=== PATIENT | female | born 1970 | race Caucasian/White ===

== ENCOUNTER 2021-11-09 00:51 | Day surgery (SDC) | payer BC, SELFPAY ==
[2021-10-24 13:27] VITALS: BMI 32.8
--- NOTE | 2021-11-08 13:27 | SUR.PREOP ---
pt called and informed of recall on magnesium citrate. pt told not to take this before her prep. pt verbalized understanding.
[2021-11-09 06:44] VITALS: BP 128/67; PULSE 66; RESP 16; TEMP 36; O2SAT 99; BMI 32.3
[2021-11-09] MEDS: LACTATED RINGERS 1,000 ML 150 ML IV CONT (06:54)
--- NOTE | 2021-11-09 07:51 | PM.IMHP ---
H&P: HPI History of Present Illness Date/Time: 11/09/21 07:51 Chief Complaint: Neoplasia screening. Narrative: This is a 51-year-old white female patient presents for neoplasia screening. Patient's current weight appetite and bowel movements are normal. She denies abdominal pain. Patient has had no bleeding. Family history is noncontributory. Patient presents today for neoplasia screening. Review of Systems Review of Systems: Review of systems noncontributory. [facility] Past Medical History Medical History (Updated 11/01/21 @ 15:19 by Latia Ash NP) Allergies BMI 33.0-33.9,adult Constipation Elevated BP without diagnosis of hypertension Encounter to establish care Hyperlipidemia Hypersomnia Hypertension Insomnia Screening for breast cancer Screening for colon cancer Seasonal allergies Snoring Surgical History Surgical History (Updated 09/14/21 @ 11:03 by Luc Johnson [facility]) H/O tubal ligation Hx of section 1991, 1993, 2001 Family History Family History (Updated 09/14/21 @ 11:02 by Luc Johnson [facility]) Sibling Hypertension Mother Cerebrovascular accident Diabetes mellitus Hypertension Heart disease Father Family history of Alzheimer's disease Malignant neoplasm of prostate Social History Social History (Updated 09/14/21 @ 11:03 by Luc Johnson [facility]) Smoking status: Never smoker Second hand tobacco smoke exposure: No Alcohol intake: never Drinks per week: 3 Substance use: never Substance use type: does not use Living arrangements: alone Spiritual care concerns: No Meds Home Medications and Allergies Home Medications Medication Instructions Recorded Confirmed Type bromelains 1 tablet PO DAILY 09/14/21 10/24/21 History cascara sagrada 2 tab-cap PO DAILY 09/14/21 10/24/21 History coenzyme Q10 75 mg capsule (Ultra 200 mg PO DAILY 09/14/21 10/24/21 History CoQ10) omega-3 fatty acids 500 mg capsule 500 mg PO DAILY 09/14/21 10/24/21 History soy isofla-blk cohosh-mag bark 1 tab-cap PO DAILY 09/14/21 10/24/21 History [Estroven] vit C-s.gthvxl-pxieuq-nubbb sd 1 cap PO DAILY 09/14/21 10/24/21 History [Tart Feldman] cyanocobalamin (vitamin B-12) 1,000 mcg PO DAILY 10/24/21 10/24/21 History 1,000 mcg tablet (Vitamin B-12) trazodone 50 mg tablet 50 mg PO QHS #30 tabs 10/24/21 10/24/21 Rx lisinopril 10 mg tablet 10 mg PO DAILY #30 tabs 11/01/21 11/09/21 Rx Allergies Allergy/AdvReac Type Severity Reaction Status Date / Time quetiapine [From Seroquel] AdvReac Severe Agitated Verified 11/09/21 06:41 Vital Signs Vital Signs - 24 hr 11/09/21 06:44 Temperature 96.8 F L Pulse Rate 66 Respiratory Rate 16 Blood Pressure 128/67 Pulse Oximetry 99 Oxygen Delivery Room Air Exam Narrative: Physical exam reveals patient to be alert. Vital signs stable. HEENT exam is unremarkable. Patient is anicteric. Lungs are clear to auscultation and percussion. Heart is without murmur or extra sounds. Abdominal exam bowel sounds are present soft nontender with no hepatosplenomegaly. Digital external rectal exam is normal. Assessment and Plan Assessment and plan (1) Screening for colon cancer: Code(s): Z12.11 - Encounter for screening for malignant neoplasm of colon Status: Acute Assessment and Plan: Patient presents today for neoplasia screening colonoscopy. Plan is for patient to have colonoscopy high-fiber diet is a advised. Further recommendations will be given.
--- NOTE | 2021-11-09 07:51 | WPDANESEPPF ---
Anes - Initial Pre Proc Eval Procedure: Operation Date: 11/09/21 08:00 Proposed Procedures p Screening Colonoscopy - Jaime Malik MD Date/Time: 11/09/21 07:51 Surgeon: Jaime Malik MD Pre Op Diagnosis: neoplasm screening Patient Data Age: 51 Gender: F Height: 1.68 m Weight: 90.9 kg Last Vital Signs Temp 96.8 F L 11/09/21 06:44 Pulse 66 11/09/21 06:44 Resp 16 11/09/21 06:44 BP 128/67 11/09/21 06:44 Pulse Ox 99 11/09/21 06:44 O2 Del Method Room Air 11/09/21 06:44 Allergies Allergy/AdvReac Type Severity Reaction Status Date / Time quetiapine [From Seroquel] AdvReac Severe Agitated Verified 11/09/21 06:41 Home Medications Medication Instructions Recorded Confirmed Type bromelains 1 tablet PO DAILY 09/14/21 10/24/21 History cascara sagrada 2 tab-cap PO DAILY 09/14/21 10/24/21 History coenzyme Q10 75 mg capsule (Ultra 200 mg PO DAILY 09/14/21 10/24/21 History CoQ10) omega-3 fatty acids 500 mg capsule 500 mg PO DAILY 09/14/21 10/24/21 History soy isofla-blk cohosh-mag bark 1 tab-cap PO DAILY 09/14/21 10/24/21 History [Estroven] vit C-s.regvtq-krqigx-mvgcu sd 1 cap PO DAILY 09/14/21 10/24/21 History [Tart Feldman] cyanocobalamin (vitamin B-12) 1,000 mcg PO DAILY 10/24/21 10/24/21 History 1,000 mcg tablet (Vitamin B-12) trazodone 50 mg tablet 50 mg PO QHS #30 tabs 10/24/21 10/24/21 Rx lisinopril 10 mg tablet 10 mg PO DAILY #30 tabs 11/01/21 11/09/21 Rx Patient hx anesthesia problems: none Family hx anesthesia problems: none Results Review: All pre-operative results and documents have been reviewed as part of the pre-operative evaluation. [facility] Past Medical History Medical History (Updated 11/01/21 @ 15:19 by Latia Ash NP) Allergies BMI 33.0-33.9,adult Constipation Elevated BP without diagnosis of hypertension Encounter to establish care Hyperlipidemia Hypersomnia Hypertension Insomnia Screening for breast cancer Screening for colon cancer Seasonal allergies Snoring Surgical History Surgical History (Updated 09/14/21 @ 11:03 by Luc Johnson [facility]) H/O tubal ligation Hx of section 1991, 1993, 2001 Family History Family History (Updated 09/14/21 @ 11:02 by uLc Johnson [facility]) Sibling Hypertension Mother Cerebrovascular accident Diabetes mellitus Hypertension Heart disease Father Family history of Alzheimer's disease Malignant neoplasm of prostate Social History Social History (Updated 09/14/21 @ 11:03 by Luc Johnson [facility]) Smoking status: Never smoker Second hand tobacco smoke exposure: No Alcohol intake: never Drinks per week: 3 Substance use: never Substance use type: does not use Living arrangements: alone Spiritual care concerns: No Anes - Eval Final PreProcedure Day of Procedure 11/09/21 07:51 Patient weight: obese Heart: regular rate and rhythm Lungs: clear to auscultation Airway: Mallampati scale class II Neurological: alert and oriented Last oral intake: >/= 8 hours ASA classification: II Emergent: no Anesthetic plan: proceed Anesthesia type and monitoring: general GIVS and standard monitoring Results Review: All pre-operative results and documents have been reviewed as part of the pre-operative evaluation. Informed Consent: The patient's anesthetic plan and its attendant risks and benefits were discussed with the patient/family/POA. Questions were solicited and answers provided to the satisfaction of the patient/family/POA.
[2021-11-09] MEDS: SIMETHICONE ORAL SUSPENSION 20 MG/0.3 ML 30 ML BOTTLE 0.6 ML IRRIGATION (08:10)
[2021-11-09 08:20] VITALS: BP 112/68; PULSE 60; RESP 17; O2SAT 100
[2021-11-09 08:30] VITALS: BP 125/79; PULSE 57; RESP 17; O2SAT 100
[2021-11-09 08:40] VITALS: BP 130/72; PULSE 61; RESP 17; O2SAT 100
== END 2021-11-09 08:50 | disposition home or self-care (01) ==
PROVIDERS: PCP Nurse Practitioner Family; Visit Provider Internal Medicine Gastroenterology
PROC: 0DJD8ZZ Inspection of Lower Intestinal Tract, Via Natural or Artificial Opening Endoscopic (ICD-10-PCS; CPT 45378; principal; 2021-11-09 08:00)
DX: Z12.11 Encounter for screening for malignant neoplasm of colon (principal); D12.3 Benign neoplasm of transverse colon; K64.8 Other hemorrhoids; K63.89 Other specified diseases of intestine; E78.5 Hyperlipidemia, unspecified; I10 Essential (primary) hypertension; G47.00 Insomnia, unspecified; E66.9 Obesity, unspecified; Z68.32 Body mass index [BMI] 32.0-32.9, adult
CPT/HCPCS: 45380; 88305; J7120

== ENCOUNTER 2021-11-14 08:58 | Outpatient (CLI) | payer BC, SELFPAY ==
--- NOTE | 2021-12-04 21:03 | WPDHOMESLEEP ---
Sleep Study - Home Unattended Date of Study: 11/14/21 Ordering Provider: Latia Ash NP Interpreting Provider: Raya Reeves, DO Home Sleep Study Type: Apnea Link Air Height: 1.65 m Weight: 90.718 kg Body Mass Index: 33.3 Neck Circumference (inches): 16 [place]: 9 Reason for Sleep Study Unrefreshing sleep, loud snoring Sleep History The patient is a 51-year-old female with hypertension, insomnia, hyperlipidemia and seasonal allergies that had a sleep study ordered by her primary care for evaluation sleep apnea. 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 She occasionally awakens from sleep short of breath. She frequently awakens at night with heartburn, belching or cough. She constantly snores loud enough that others complain. She constantly has trouble sleeping when she has a cold. She rarely wakes up gasping for air throughout the night. She rarely has breathing problems at night observed by herself or others. She constantly sweats excessively at night. She constantly has heart palpitations or irregular heartbeats during the night. She frequently falls asleep during the day but never while driving. She denies cataplexy. She occasionally has trouble at school or work due to sleepiness. She rarely feels unable to move while waking up or falling asleep. She occasionally experiences vivid dreamlike scenes upon awakening or falling asleep. She denies feeling afraid of going to sleep. She rarely has nightmares. She rarely remembers her dreams. She constantly has thoughts racing through her mind. She occasionally feels sad, depressed or anxious. She constantly has muscular tension. She occasionally notices parts of her body jerk. She occasionally kicks during the night. She constantly has crawling and aching feelings in her legs as well as leg pain during the night. She is unsure if she grinds her teeth during sleep but will occasionally awaken with morning jaw pain. She is occasionally bothered by pain during the day and occasionally awakened by pain during the night. She occasionally wakes up feeling stiff in the morning. She occasionally wakes up with sore achy muscles. She frequently wakes up with pain in the neck, spine and other joints. She goes to bed at 10:00 p.m. on both weekdays and weekends. It takes her 20-60 minutes to fall asleep. She typically wakes up 3 times throughout the night to use the restroom. She is able to fall back asleep within 5-10 minutes. She wakes up at 7:00 a.m. on both weekdays and weekends. She typically gets 5-7 hours of sleep per night. She will stay in bed for 5 minutes after waking up in the morning. She currently lives with her and adult daughter. She does not consume any caffeinated beverages within 2 hours of bedtime. She does not engage in physical exercise before bedtime. She will watch television before falling asleep. She denies taking naps in afternoon or evening. She drinks 2 cups of coffee per day. She will drink at most 1 alcoholic beverage per day. She denies tobacco and recreational drug use. [facility] Past Medical History Medical History Allergies BMI 33.0-33.9,adult Constipation Elevated BP without diagnosis of hypertension Encounter to establish care Hyperlipidemia Hypersomnia Hypertension Insomnia Screening for breast cancer Screening for colon cancer Seasonal allergies Snoring Surgical History Surgical History H/O tubal ligation Hx of section 1991, 1993, 2001 Family History Family History Sibling Hypertension Mother Cerebrovascular accident Diabetes mellitus Hypertension Heart disease Father Family history of Alzheimer's disease Malignant neoplasm of prostate Social History Social History (Reviewed 12/04/21 @ 21:11 by Raya Reeves,
[2021-12-04 21:13] VITALS: BMI 33.3
== END 2021-11-15 10:57 | disposition home or self-care (01) ==
LOC: ANHCSM 08:58
PROVIDERS: PCP Nurse Practitioner Family; Visit Provider Nurse Practitioner Family
DX: G47.33 Obstructive sleep apnea (adult) (pediatric) (principal)
CPT/HCPCS: 95806

== ENCOUNTER → 2021-12-19 11:01 | Outpatient (CLI) | payer BC, SELFPAY ==
--- NOTE | ~2021-12-19 | MM_ITS ---
EXAMINATION: MM screening mina BI w nani HISTORY: Screening mammogram TECHNIQUE: Craniocaudal and mediolateral oblique 3-D tomosynthesis images were obtained and synthetic 2-D images were generated. CAD analysis was submitted and interpreted. COMPARISON: 02/18/2019 bilateral screening mammogram 11/14/2016 diagnostic left mammogram 07/23/2016 bilateral screening mammogram BREAST PARENCHYMAL COMPOSITION: There are scattered areas of fibroglandular density. FINDINGS: There is no evidence of suspicious mass, calcification, or architectural distortion to sugg est malignancy in either breast. There has been no suspicious interval change. IMPRESSION: 1. No mammographic evidence of malignancy. 2. Recommend routine screening mammography in one year. BI-RADS Category 1: Negative Reviewed, dictated and finalized at location A.
== END ==
PROVIDERS: PCP Family Medicine; Visit Provider Nurse Practitioner Family
DX: Z12.31 Encounter for screening mammogram for malignant neoplasm of breast (principal)
CPT/HCPCS: 77063; 77067

== ENCOUNTER 2023-09-22 12:22 | Outpatient (CLI) | payer BC, SELFPAY ==
--- NOTE | ~2023-09-22 | MM_ITS ---
EXAMINATION: MM screening mina BI w nani HISTORY: Screening TECHNIQUE: Craniocaudal and mediolateral oblique 3-D tomosynthesis images were obtained and synthetic 2-D images were generated. CAD analysis was submitted and interpreted. COMPARISON: Comparison to multiple prior studies sequentially, with oldest reviewed study dated 11/2015. BREAST PARENCHYMAL COMPOSITION: Not Dense: Breast are almost entirely fatty. FINDINGS: There is no evidence of suspicious mass, calcification, or architectural distortion to sugg est malignancy in either breast. There has been no suspicious interval change. IMPRESSION: 1. No mammographic evidence of malignancy. 2. Recommend routine screening mammography in one year. BI-RADS Category 1: Negative Reviewed, dictated and finalized at location B.
== END 2023-09-22 12:23 ==
LOC: MICIMG 12:24
PROVIDERS: PCP Nurse Practitioner Family; Visit Provider Nurse Practitioner Family
DX: Z12.31 Encounter for screening mammogram for malignant neoplasm of breast (principal)
CPT/HCPCS: 77063; 77067

== ENCOUNTER 2024-06-23 09:04 | Outpatient (CLI) | payer BC, SELFPAY ==
--- NOTE | 2024-06-23 09:36 | EST_ITS ---
Patient Info Name: Dang Khan Age: 54 years : 1970 Gender: Female Ht: 65 in Wt: 211 lbs BSA: 2.14 m2 HR: 74 bpm BP: 128 / 59 mmHg Exam Date: 06/23/2024 9:47 AM Exam Location: [facility] Patient Status: Outpatient Admit Date: 06/23/2024 Staff Ordering Physician: Latia Ash NP Attending Provider: Latia Ash NP Exercise Technologist: [email or web address] Exercise Physician: Jorge Kearns DO Exam Type: CA stress test treadmill Study Info A treadmill exercise stress test was performed. Summary 1. 1. Negative Rebel exercise stress test for ischemic ST changes by ECG criteria. 2. 2. Reduced functional capacity, achieving 7 METs of workload. 3. 3. Transient atrial tachycardia at termination of test. 4. 4. Appropriate HR response to exercise. 5. 5. Appropriate HR recovery at 1 minute post exercise. 6. 6. No imaging with stress testing. 7. 7. Patient informed of the above results. Protocol: Rebel Stress ECG Details Stage: REST Duration (min): 5 min : 22 sec Speed (mph): 0.0 Grade (%): 0 HR (bpm): 70 SBP (mmHg): 128 DBP (mmHg): 59 METS: --- Stage: REST Duration (min): 6 min : 7 sec Speed (mph): 0.0 Grade (%): 0 HR (bpm): 87 SBP (mmHg): 128 DBP (mmHg): 59 METS: --- Stage: STAGE 1 Duration (min): 1 min : 0 sec Speed (mph): 1.7 Grade (%): 10 HR (bpm): 113 SBP (mmHg): 128 DBP (mmHg): 59 METS: --- Stage: STAGE 1 Duration (min): 2 min : 0 sec Speed (mph): 1.7 Grade (%): 10 HR (bpm): 128 SBP (mmHg): 128 DBP (mmHg): 59 METS: --- Stage: STAGE 1 Duration (min): 3 min : 0 sec Speed (mph): 1.7 Grade (%): 10 HR (bpm): 133 SBP (mmHg): 176 DBP (mmHg): 84 METS: --- Stage: STAGE 2 Duration (min): 1 min : 0 sec Speed (mph): 2.5 Grade (%): 12 HR (bpm): 139 SBP (mmHg): 176 DBP (mmHg): 84 METS: --- Stage: STAGE 2 Duration (min): 2 min : 0 sec Speed (mph): 2.5 Grade (%): 12 HR (bpm): 149 SBP (mmHg): 177 DBP (mmHg): 87 METS: --- Stage: STAGE 2 Duration (min): 2 min : 0 sec Speed (mph): 2.5 Grade (%): 12 HR (bpm): 147 SBP (mmHg): 177 DBP (mmHg): 87 METS: --- Stage: RECOVERY Duration (min): 0 min : 59 sec Speed (mph): 0.0 Grade (%): 0 HR (bpm): 116 SBP (mmHg): 177 DBP (mmHg): 87 METS: --- Stage: RECOVERY Duration (min): 1 min : 59 sec Speed (mph): 0.0 Grade (%): 0 HR (bpm): 106 SBP (mmHg): 177 DBP (mmHg): 87 METS: --- Stage: RECOVERY Duration (min): 2 min : 59 sec Speed (mph): 0.0 Grade (%): 0 HR (bpm): 96 SBP (mmHg): 137 DBP (mmHg): 80 METS: --- Stage: RECOVERY Duration (min): 3 min : 15 sec Speed (mph): 0.0 Grade (%): 0 HR (bpm): 104 SBP (mmHg): 137 DBP (mmHg): 80 METS: --- Rest HR: 87 bpm Peak HR: 169 bpm Rest Sys BP: 128 mmHg Peak Sys BP: 177 mmHg Max Pred HR: 166 bpm % Max Pred HR: 102 % Target HR: 141 bpm Max RPP: 29,913 bpm*mmHg Baker Score: 0 Termination Reason: Reached target heart rate or workload Cardiac Symptoms: Shortness of breath Max ST Seg Deviation: -1.00 mm Total Time: 5 min : 0 sec Rest Omalley BP: 59 mmHg Peak Omalley BP: 87 mmHg Angina Score: None Total METS: 7.1 Resting ECG Sinus rhythm. Stress ECG No ST changes. Arrhythmias Transient atrial tachycardia at 160 bpm at termination of test. Report Signatures
--- OUTSIDE RECORDS SUMMARY | 2024-06-23 09:48 | XMS_ITS | Clinical Summary ---
Author Organization [facility] Address [address] [place] [phone] Phone Care Team Providers Care Commodity Director Name Role Phone Rene Christy MD Primary Care Provider [phone] Allergies Active Allergy Reactions Criticality Noted Date Comments Celery Other (See Comments) 06/02/2023 Tongue goes numb Medications cyanocobalamin, vitamin B-12, (VITAMIN B-12 ORAL) Take by mouth. Active buPROPion (WELLBUTRIN) 75 mg tablet Take 75 mg by mouth daily. Active lisinopriL (PRINIVIL) 10 mg tablet Take 10 mg by mouth daily. Active Active Problems Problem Noted Date Diagnosed Date Abnormal mammogram of left breast 07/29/2016 Assessment & Plan (07/29/2016 10:08 AM CDT): Asymptomatic. An order for a diagnostic mammogram with ultrasound if indicated for the left breast was placed. Elevated blood pressure (not hypertension) 05/27 Assessment & Plan (05/27/2016 9:46 AM YARDAGE CONTROL OPERATOR FORMING): Current disease status: Stable BLOOD PRESSURE BP Readings from Last 3 Encounters: 05/27/16 (!) 142/78 04/23/16 120/86 01/19/16 130/84 First hypertensive BP reading > or = 140 or > or = 90 and no diagnosis of hypertension. Patient instructed to rescreen blood pressure within one day to four weeks; discussed lifestyle changes including weight loss, reducing sodium intake, and increasing physical activity for blood pressure control. . She was advised to monitor her blood pressure. If she would consistently have systolic readings in excess of 140 and/or diastolic readings consistently above 90 she was advised to notify the office. Recommend eating a heart healthy diet limiting daily salt intake to 2000 gm. Recommend trying to maintain a healthy body weight. Aerobic exercise is beneficial. High blood pressure silently causes progressive damage to arteries and veins. This can lead to atherosclerosis (hardening of the arteries) with plaque formation and decreased blood flow. Organ systems affected include the BRAIN (with vascular dementia, TIA and stroke risk); KIDNEY (uncontrolled high blood pressure is the most common cause of kidney failure leading to dialysis) and HEART (with increased risk for heart attack and congestive heart failure. Peripheral vascular disease and retinal changes in the eye can also result from elevated blood pressure. Early intervention is critical to prevent these developments. Recommend she monitor her blood pressure over the course of the near future. Obesity (BMI 30.0-34.9) 01/19/2016 Assessment & Plan (08/27/2017 7:24 PM CDT): Current disease status: Suboptimal control. Wt Readings from Last 3 Encounters: 08/27/17 93.9 kg (207 lb) 08/04/17 94.3 kg (208 lb) 07/29/16 81.6 kg (180 lb) MORBID OBESITY - Body mass index is 33.41 kg/m . She was encouraged to continue with her exercise efforts. Recommend watching the diet eliminating sweets and reducing refined carbohydrates. Recommend also reducing foods containing saturated fat and cholesterol. Whole grains, fruits, vegetables and lean cuts of meat preferring poultry and fish are recommended. Food portion control is also important and helpful to effect weight loss. Recommend participating in regularly scheduled exercise. 20 - 30 minutes daily 5 times per week. Adequate sleep of 7 to 9 hours is recommended for inadequate sleep can hamper weight loss. She was encouraged to continue with her exercise efforts. Assessment & Plan (07/29/2016 10:07 AM CDT): Improving. Recommend she continue with her dietary and exercise efforts. She'll continue with phentermine for one more month. She should notify the office of any concerning development. Assessment & Plan (06/24/2016 5:14 PM CDT): Current disease status: Improving BMI PLAN OF CARE Normal BMI ranges: 18-64 yrs: > or = 18.5 and < 25 65 yrs and older: > or = 23 and < 30 Body mass index is 30.02 kg/(m^2). Abnormal high BMI: patient counseled on lifestyle modifications including weight loss and daily exercise. Weight management options discussed. Medical conditions secondary to her obesity include dyslipidemias. The role of obesity in her current health conditions, risk of future morbidity/mortality and the importance of weight loss in improving these conditions and her overall health was discussed. She was instructed to watch her diet eliminating sweets and reducing refined carbohydrates. She should also watch her diet regarding foods containing saturated fat and cholesterol. Whole grains, fruits, vegetables and lean cuts of meat preferring poultry and fish were recommended. Food portion control is also important and helpful to effect weight loss. She was encouraged to participate in regularly scheduled exercise. 20 - 30 minutes daily 5 times per week was recommended. Recommend she continue with her dietary and exercise efforts. She'll continue with phentermine over the course of a second month. She should notify the office of any concerns. Assessment & Plan (05/27/2016 9:44 AM YARDAGE CONTROL OPERATOR FORMING): Current disease status: Suboptimal control BMI PLAN OF CARE Normal BMI ranges: 18-64 yrs: > or = 18.5 and < 25 65 yrs and older: > or = 23 and < 30 Body mass index is 31.8 kg/(m^2). Abnormal high BMI: patient counseled on lifestyle modifications including weight loss and daily exercise. Weight management options discussed. Medical conditions secondary to her obesity include dyslipidemias, GERD. The role of obesity in her current health conditions, risk of future morbidity/mortality and the importance of weight loss in improving these conditions and her overall health was discussed. She was instructed to watch her diet eliminating sweets and reducing refined carbohydrates. She should also watch her diet regarding foods containing saturated fat and cholesterol. Whole grains, fruits, vegetables and lean cuts of meat preferring poultry and fish were recommended. Food portion control is also important and helpful to effect weight loss. She was encouraged to participate in regularly scheduled exercise. 20 - 30 minutes daily 5 times per week was recommended. Recommend she continue with her exercise and dietary efforts. Would recommend a course of phentermine 37.5 mg once daily over the next month. She should notify the office of any concerns. Assessment & Plan (01/19/2016 1:53 PM CDT): Recommend she continue with her dietary and exercise efforts. She has continued with Weight Watchers. She has been tolerating phentermine. She'll continue with phentermine for a second month. She should notify the office of any concerning development. Leg pain, bilateral 10/05/2015 Assessment & Plan (10/05/2015 5:15 PM CDT): She was advised to consider coenzyme Q. She'll have laboratory studies performed. Her symptoms may be aggravated by Crestor. Myalgia 10/05/2015 Assessment & Plan (12/12/2015 12:35 PM CDT): Recommend she continue with coenzyme Q. Assessment & Plan (10/05/2015 5:15 PM CDT): See recommendation for bilateral leg pain. Primary insomnia 10/05/2015 Assessment & Plan (12/12/2015 12:36 PM CDT): Recommend observation. Hopefully with her weight loss efforts and exercise she'll be able to sleep better. She should notify the office of any concerns. Assessment & Plan (10/05/2015 5:15 PM CDT): Recommend observation at this point in time. She should notify the office of any worsening. History of seasonal allergies 10/05/2015 Assessment & Plan (08/27/2017 7:24 PM CDT): Current disease status: Stable. She may consider an antihistamine when necessary. She notes that she had good results with her allergy immunization shots. Assessment & Plan (07/29/2016 10:08 AM CDT): Stable. Recommend she continue with her allergy desensitization immunizations. She'll continue with [place]. Assessment & Plan (12/12/2015 12:35 PM CDT): Recommend she continue with [place] when necessary. Assessment & Plan (10/05/2015 5:14 PM CDT): Recommend she continue with her allergy desensitization immunizations. She'll continue with [place]. Chest tightness 10/05/2015 Assessment & Plan (10/05/2015 5:13 PM CDT): Recommend observation at this point in time. She feels it may relate to stress. She should notify the office of any worsening. Chronic midline low back pain without sciatica 0 10/05/2015 Assessment & Plan (10/05/2015 5:13 PM CDT): Would recommend the application of moist heat 15-20 minutes per session 4-6 times daily if possible. Would also recommend gentle range of motion and stretching exercises. She may continue with ibuprofen when necessary. She relates that it's intermittent in nature. Hypercholesterolemia 10/05/2015 Assessment & Plan (08/27/2017 7:24 PM CDT): Current disease status: Stable She was advised to be vigilant of her diet especially with regards to reducing foods containing saturated fat, cholesterol, simple sugars, refined carbohydrates, and processed food. Recommend lean meats, fruits, vegetables, and whole grains. Recommend at least 30 minutes of moderate intensity exercise 5 days a week. Your last cholesterol values are as follows: Lab Results Component Value Date/Time CHOLTOT 214 (H) 07/24/2016 08:15 AM CHOLTOT 235 (H) 10/10/2015 09:30 AM HDL 62 07/24/2016 08:15 AM HDL 58 10/10/2015 09:30 AM LDLCALC 143 (H) 07/24/2016 08:15 AM LDLCALC 160 (H) 10/10/2015 09:30 AM TRIGLYCERIDE 47 07/24/2016 08:15 AM TRIGLYCERIDE 83 10/10/2015 09:30 AM Recommend she continue with rosuvastatin 5 mg once daily. She will have laboratory studies performed in the near future. Assessment & Plan (07/29/2016 10:08 AM CDT): Current disease status: Improving She was advised to be vigilant of her diet with regards to reducing the consumption of foods containing saturated fats and cholesterol. Your last cholesterol values are as follows: Lab Results Component Value Date/Time CHOLTOT 214 (H) 07/24/2016 08:15 AM CHOLTOT 235 (H) 10/10/2015 09:30 AM HDL 62 07/24/2016 08:15 AM HDL 58 10/10/2015 09:30 AM LDLCALC 143 (H) 07/24/2016 08:15 AM LDLCALC 160 (H) 10/10/2015 09:30 AM TRIGLYCERIDE 47 07/24/2016 08:15 AM TRIGLYCERIDE 83 10/10/2015 09:30 AM Recommend she continue with rosuvastatin 5 mg once daily at this time. She'll continue with her exercise and dietary efforts. Assessment & Plan (06/24/2016 5:14 PM CDT): Current disease status: Stable She was advised to be vigilant of her diet with regards to reducing the consumption of foods containing saturated fats and cholesterol. Your last cholesterol values are as follows: Lab Results Component Value Date/Time CHOLTOT 235 (H) 10/10/2015 09:30 AM HDL 58 10/10/2015 09:30 AM LDLCALC 160 (H) 10/10/2015 09:30 AM TRIGLYCERIDE 83 10/10/2015 09:30 AM Recommend she continue with Crestor. She will have laboratory studies performed prior to her next visit. Assessment & Plan (05/27/2016 9:44 AM YARDAGE CONTROL OPERATOR FORMING): Current disease status: Stable She was advised to be vigilant of her diet with regards to reducing the consumption of foods containing saturated fats and cholesterol. Your last cholesterol values are as follows: Lab Results Component Value Date/Time CHOLTOT 235 (H) 10/10/2015 09:30 AM HDL 58 10/10/2015 09:30 AM LDLCALC 160 (H) 10/10/2015 09:30 AM TRIGLYCERIDE 83 10/10/2015 09:30 AM Recommend she continue with Crestor and CoQ10. Assessment & Plan (12/12/2015 12:35 PM CDT): Current disease status: Stable She was advised to be vigilant of her diet with regards to reducing the consumption of foods containing saturated fats and cholesterol. Your last cholesterol values are as follows: Lab Results Component Value Date/Time CHOLTOT 235* 10/10/2015 09:30 AM HDL 58 10/10/2015 09:30 AM LDLCALC 160* 10/10/2015 09:30 AM TRIGLYCERIDE 83 10/10/2015 09:30 AM Recommend she continue with Crestor. She notes better tolerability taking CoQ10. Assessment & Plan (10/05/2015 5:15 PM CDT): Current disease status: Unknown She was advised to be vigilant of her diet with regards to reducing the consumption of foods containing saturated fats and cholesterol. Your last cholesterol values are as follows: No results found for: CHOLTOT, HDL, LDLCALC, LDLDIRECT, TRIGLYCERIDE She will have laboratory studies performed. Recommend she continue with Crestor for the time being. Crestor may be contributing to her muscle aches. Hypersomnia 10/05/2015 Assessment & Plan (10/05/2015 5:15 PM CDT): Recommend scheduling a sleep study. She notes that her family reports that she snores quite loudly. Health care maintenance 03/20/2015 Assessment & Plan (08/27/2017 7:27 PM CDT): Her health risk assessment has been reviewed and a copy placed in the chart. She was advised to protect herself from the sun with a wide brimmed hat and sunblock. She was encouraged to be vigilant of her diet regarding sugars and refined carbohydrates. She should try to avoid processed food. Whole grains, fruits, vegetables and lean cuts of meat preferring poultry and fish were recommended. She was encouraged to continue with her exercise efforts. She should continue wearing a seatbelt when in a car. She should notify the office of any health concerns. Resolved Problems Problem Noted Date Diagnosed Date Resolved Date Gastroesophageal reflux dise ase without esophagitis 10/05/2015 05/27/2016 Assessment & Plan (10/05/2015 5:14 PM CDT): Current disease status: Stable. Diet and Lifestyle changes can help in treating gastroesophageal reflux disease (GERD). Eating low-fat high-protein meals can reduce the risk for heartburn and acid reflux. Coffee or Tea (regular or decaffeinated), carbonated beverages and alcohol can trigger or worsen heartburn. [place] Fruits, Tomatoes and Tomato products, Chocolate, Mint or Peppermint, Fatty or Spicy foods, Onions and Garlic can trigger or worsen heartburn. Smoking increases the amount of acid produced by the stomach. Elevating the head of the bed with 4 or 6 inch blocks can help reduce acid reflux while sleeping. Sleeping with extra pillows is less effective due to increasing abdominal pressure. You should stop eating 3 hours prior to bedtime. Eating smaller meals and stopping eating before feeling too full can be helpful. Recommend you continue taking TUMS when necessary. Basal cell carcinoma 10/05/2015 017 Overview (10/05/2015): Scalp. Assessment & Plan (10/05/2015 5:13 PM CDT): Recommend she continue with her current management. She is scheduled to have excision in the near future. She has no other suspicious lesions noted this time. Encounters Date Type Department Care Team Description 04/13/2024 External Device Data ST[facility] ABSTRACTION Provider, Abstract from Last 3 Months Family History Medical History Relation Name Comments Cancer Father Blaine Prostate Prostate Cancer Father Blaine Breast Cancer Maternal Aunt Heart Disease Maternal Grandfather Colon Cancer Maternal Uncle Diabetes Mother Rocio Heart Attack Mother Rocio Heart Disease Mother Rocio High Cholesterol Mother Rocio Hypertension Mother Rocio Stroke Mother Rocio Endometriosis Sister Meliza Ovarian Cancer Neg Hx Uterine Cancer Neg Hx Relation Name Status Comments Father Blaine Maternal Aunt Alive Maternal Grandfather Maternal Uncle Alive Mother Rocio Sister Meliza Social History Tobacco Use Types Packs/Day Years Used Date Smoking Tobacco: Never Smokeless Tobacco: Never Alcohol Use Standard Drinks/Week Comments Yes 5 (1 standard drink = 0.6 oz pur e alcohol) Very rarely. Comments No Sex and Gender Information Value Date Recorded Sex Assigned at Not on file Legal Sex Female 5:30 PM YARDAGE CONTROL OPERATOR FORMING Gender Identity Not on file Sexual Orientation Not on file Last Filed Vital Signs Vital Sign Reading Time Taken Comments Blood Pressure 114/72 06/02/2023 10:17 AM YARDAGE CONTROL OPERATOR FORMING Pulse 73 08/27/2017 6:27 PM CDT Temperature 37 C (98.6 F) 08/27/2017 6:27 PM CDT Respiratory Rate 16 08/27/2017 6:27 PM CDT Oxygen Saturation 97% 08/27/2017 6:27 PM CDT Inhaled Oxygen Concentration - - Weight 92.5 kg (204 lb) 06/02/2023 10:17 AM YARDAGE CONTROL OPERATOR FORMING Height 167.6 cm (5' 6 ) 06/02/2023 10:17 AM YARDAGE CONTROL OPERATOR FORMING Body Mass Index 32.93 06/02/2023 10:17 AM YARDAGE CONTROL OPERATOR FORMING Plan of Treatment Health Maintenance Due Date Last Done Comments Pre-Diabetes and Diabetes Screening 1970 DTAP/TDAP/TD VACCINES (1 - Tdap) 1989 HEPATITIS B VACCINES (1 of 3 - 19+ 3-dose series) 1989 COLORECTAL SCREENING 2015 Colorectal Cancer Screening 2015 FIT-DNA Q 3 years 2015 FIT/FOBT Q 1 year 2015 Flex Sig/CT Colonography Q 5 years 2015 BREAST CANCER SCREENING 11/14/2017 11/15/19 17, 08/01/2016, 05/16/2015 ZOSTER VACCINE (1 of 2) 02/13/2020 INFLUENZA VACCINE (#1) 2023 Preventative Visit- Commercial 04/07/2024 06/02/2023, 10/12/2021, 08/27/2017 CERVICAL CANCER SCREENING 06/02/20262023, 10/12/2021, 01/06/2019, Additional history exists PNEUMOCOCCAL VACCINE 0-49 YEARS Aged Out No longer eligible based on patient's age to complete this topic Procedures Procedure Name Priority Date/Time Associated Diagnosis Comments CERV/VAG CYTO AGE BASED SCREEN PAP Routine 06/02/2023 10:35 AM YARDAGE CONTROL OPERATOR FORMING Screening for cervical cancer MAMMO SCRN TO DIAG UNI LEFT Routine 11/14/2016 from Last 3 Months or Most Recently Relevant to Health Maintenance Results * CERV/VAG CYTO AGE BASED SCREEN PAP (06/02/2023 10:35 AM YARDAGE CONTROL OPERATOR FORMING) COMMENT (PAP): [facility] [place] Comment: This order for age-based cervical cancer and STI screening follows ACOG guidelines(PB 168, 140, XSY442). See individual assays for performing site location. CLINICAL INFORMATION [facility] [place] Comment:None given LAST MENSTRUAL PERIOD [facility] [place] Comment:NONE GIVEN PREV PAP: [facility] [place] Comment:NONE GIVEN PREV BX: [facility] [place] Comment:NONE GIVEN SOURCE [facility] [place] Comment:Endocervix ADEQUACY: [facility] [place] Comment:SATISFACTORY FOR BARBY LUATION PAP INTERP [facility] [place] Comment: Cytology Results: Negative for intraepithelial lesion or malignancy. Atrophic pattern; predominantly parabasal cells COMMENT (PAP TEST) [facility] [place] Comment: This Pap test has been evaluated with computer assisted technology. EARTH SCIENCE TECHNICAL OFFICER: [facility] [place] Comment: MDMagaly, CT(ASCP) CT screening location: [place] [address] [place] [address] EXPLANATORY NOTE [facility] [place] Comment: EXPLANATORY NOTE: The Pap is a screening test for cervical cancer. It is not a diagnostic test and is subject to false negative and false positive results. It is most reliable when a satisfactory sample, regularly obtained, is submitted with relevant clinical findings and history, and when the Pap result is evaluated along with historic and current clinical information. HPV E6/E7 Not Detected Not Detected [facility] [place] Comment: Methodology: Fruit Grower-Mediated Amplification This assay detects E6/E7 viral messenger RNA (mRNA) from 14 high-risk HPV types (16,18,31,33,35,39,45,51,52,56,58,59,66,68). Cervical sources are required for HPV testing. If a vaginal source from a patient who has had a total hysterectomy with removal of cervix was submitted, please contact the testing laboratory for alternative testing options. For additional information, please refer to http://education.BeMyGuest/faq/OLH542m0 (This link if provided for information/ educational purposes only.) Test Performed at: [facility] [address] [address] Kacie BURCH Genital SWAB OF ENDOCERVIX / Unknown 06/02/2023 10:35 AM YARDAGE CONTROL OPERATOR FORMING 06/03/2023 5:05 AM YARDAGE CONTROL OPERATOR FORMING [place] Kathren Waterman CONSTRUCTION COORDINATOR PATHOLOGY/CYTOLOGY ORDERAB LES Final Result [facility] [phone] [facility] [address] [place] [id number] * MAMMO SCRN TO MADELYN CHAUDHARY LEFT (11/14/2016) Anatomical Region Laterality Modality Breast Mammography Kevin Masters MD MAMMO ORDERABLES Final Result from Last 3 Months or Most Recently Relevant to Health Maintenance Insurance BLUE ACCESS/TRUE BLUE PPO Care Teams Commodity Director Relationship Specialty Start Date End Date Rene Christy MD [address] [facility] [address] [facility] [address] [place] [id number] PCP - General Family Practice 10/05/15
== END 2024-06-23 09:05 | disposition home or self-care (01) ==
LOC: ANHCARD 09:05
PROVIDERS: PCP Nurse Practitioner Family; Visit Provider Nurse Practitioner Family
DX: I47.19 Other supraventricular tachycardia (principal); I10 Essential (primary) hypertension
CPT/HCPCS: 93017

== ENCOUNTER 2024-08-16 11:45 | Emergency (ER) | payer BC, SELFPAY ==
--- OUTSIDE RECORDS SUMMARY | 2024-08-16 11:47 | XMS_ITS | Clinical Summary ---
Author Organization [facility] Address [address] [facility] [address] [place] [address] Phone Care Team Providers Care Adult Health Clinical Nurse Specialist Name Role Phone Rene Christy MD Primary Care Provider [phone] Allergies Active Allergy Reactions Criticality Noted Date [...] 05/27 Assessment & Plan (05/27/2016 9:46 AM TEA LEAF READER): Current disease status: Stable BLOOD PRESSURE BP [...] concerns. Assessment & Plan (05/27/2016 9:44 AM TEA LEAF READER): Current disease status: Suboptimal control BMI PLAN [...] visit. Assessment & Plan (05/27/2016 9:44 AM TEA LEAF READER): Current disease status: Stable She was advised [...] and alcohol can trigger or worsen heartburn. [place] Fruits, Tomatoes and Tomato products, Chocolate, Mint [...] no other suspicious lesions noted this time. Family History Medical History Relation Name Comments [...] on file Legal Sex Female 5:30 PM TEA LEAF READER Gender Identity Not on file Sexual Orientation Not on file Last Filed Vital Signs Vital Sign Reading Time Taken Comments Blood Pressure 114/72 06/02/2023 10:17 AM TEA LEAF READER Pulse 73 08/27/2017 6:27 PM CDT Temperature 37 C (98.6 F) 08/27/2017 6:27 PM CDT Respiratory Rate 16 08/27/2017 6:27 PM CDT Oxygen Saturation 97% 08/27/2017 6:27 PM CDT Inhaled Oxygen Concentration - - Weight 92.5 kg (204 lb) 06/02/2023 10:17 AM TEA LEAF READER Height 167.6 cm (5' 6 ) 06/02/2023 10:17 AM TEA LEAF READER Body Mass Index 32.93 06/02/2023 10:17 AM TEA LEAF READER Plan of Treatment Health Maintenance Due Date Last Done Comments DTAP/TDAP/TD VACCINES (1 - Tdap) 1989 HEPATITIS B VACCINES (1 of 3 - 19+ 3-dose series) 1989 COLORECTAL SCREENING 2015 Colorectal Cancer Screening 2015 FIT-DNA Q 3 years 2015 FIT/FOBT Q 1 year 2015 Flex Sig/CT Colonography Q 5 years 2015 BREAST CANCER SCREENING 11/14/2017 11/15/19 17, 08/01/2016, 05/16/2015 ZOSTER VACCINE (1 of 2) 02/13/2020 INFLUENZA VACCINE (#1) 2023 Preventative Visit- Commercial 04/07/2024 0 06/02/2023, 10/12/2021, 08/27/2017 PAP SMEAR 06/02/2026 06/02/2023, 07/0 11/2021, 01/06/2019, Additional history exists CERVICAL CANCER SCREENING 06/02/2028 HPV/Cotest (21-29) 06/02/2028 06/02/2023, 0 10/12/2021, 01/06/2019, Additional history exists HPV/Cotest (30-65) 06/02/2028 06/02/2023, 0 10/12/2021, 01/06/2019, Additional history exists Procedures Procedure Name Priority Date/Time Associated Diagnosis Comments CERV/VAG CYTO AGE BASED SCREEN PAP Routine 06/02/2023 10:35 AM TEA LEAF READER Screening for cervical cancer MAMMO SCRN TO DIAG UNI LEFT Routine 11/14/2016 from Last 3 Months or Most Recently Relevant to Health Maintenance Results * CERV/VAG CYTO AGE BASED SCREEN PAP (06/02/2023 10:35 AM TEA LEAF READER) COMMENT (PAP): [facility] [place] Comment: This order for age-based cervical cancer and STI screening follows ACOG guidelines(PB 168, 140, [id number]). See individual assays for performing site location. CLINICAL INFORMATION [facility] [place] Comment:None given LAST MENSTRUAL PERIOD [facility] [place] Comment:NONE GIVEN PREV PAP: [facility] [place] Comment:NONE GIVEN PREV BX: [facility] [place] Comment:NONE GIVEN SOURCE [facility] [place] Comment:Endocervix ADEQUACY: [facility] [place] Comment:SATISFACTORY FOR BARBY LUATION PAP INTERP [facility] [place] Comment: Cytology Results: Negative for intraepithelial lesion or malignancy. Atrophic pattern; predominantly parabasal cells COMMENT (PAP TEST) [facility] [place] Comment: This Pap test has been evaluated with computer assisted technology. PILER: Artur Ramírez Comment: LUDWIG, CT(ASCP) CT screening location: [place] [address] [place] [address] EXPLANATORY NOTE [facility] [employer] [place] Comment: EXPLANATORY NOTE: The Pap is a [...] information. HPV E6/E7 Not Detected Not Detected [facility] [place] Comment: Methodology: Hotel Sales Manager-Mediated Amplification This assay detects E6/E7 viral messenger RNA (mRNA) from 14 high-risk HPV types (16,18,31,33,35,39,45,51,52,56,58,59,66,68). Cervical sources are required for HPV testing. If a vaginal source from a patient who has had a total hysterectomy with removal of cervix was submitted, please contact the testing laboratory for alternative testing options. For additional information, please refer to http://education.[employer]/faq/UUH350x3 (This link if provided for information/ educational purposes only.) Test Performed at: [facility] [id number] [place] [id number] Kacie BURCH Genital SWAB OF ENDOCERVIX / Unknown 06/02/2023 10:35 AM TEA LEAF READER 06/03/2023 5:05 AM TEA LEAF READER Lolis Waterman DRAFTER AUTOMOTIVE DESIGN LAYOUT PATHOLOGY/CYTOLOGY ORDERAB LES Final Result [facility] [phone] [facility] [id number] [place] [phone] * MAMMO SCRN TO DIAG UNI LEFT (11/14/2016) Anatomical Region Laterality Modality Breast Mammography Kevin Masters MD MAMMO ORDERABLES Final Result from Last 3 Months or Most Recently Relevant to Health Maintenance Insurance BCBS BLUE ACCESS/TRUE BLUE PPO Care Teams Adult Health Clinical Nurse Specialist Relationship Specialty Start Date End Date Rene Christy MD [address] [place] [phone] PCP - General Family Practice 10/05/15
[2024-08-16 11:58] VITALS: BP 154/78; PULSE 67; RESP 16; TEMP 36.8; O2SAT 100
--- NOTE | 2024-08-16 12:45 | ED_ITS ---
HPI - General Adult General Chief complaint: Dental/Oral Stated complaint: dental pain Time Seen by Provider: 08/16/24 12:23 History of Present Illness HPI narrative: 54-year-old female present to emergency department for evaluation for a dental abscess. Patient began noticing dental pain and facial swelling on Friday and did start taking old prescription of amoxicillin. Patient states symptoms have since improved. Patient did have at outpatient x-ray at her dentist it did show a dental abscess. Patient did provide a photo of the swelling on Friday and time of evaluation her swelling has significantly improved. Related Data Home Medications ?Medication ?Instructions ?Recorded ?Confirmed ?Last Taken ?Type coenzyme Q10 75 mg capsule (Ultra 200 mg PO DAILY 09/14/21 06/15/24 Unknown History CoQ10) omega-3 fatty acids 500 mg capsule 500 mg PO DAILY 09/14/21 06/15/24 Unknown History soy isofla-blk cohosh-mag bark 1 tab-cap PO DAILY 09/14/21 06/15/24 Unknown History [Estroven] vit C-s.ehyhlq-djbsmt-bwbkj sd 1 cap PO DAILY 09/14/21 06/15/24 Unknown History [Tart Feldman] cascara sagrada 1 tab-cap PO DAILY 06/15/24 06/15/24 Unknown History Allergies Allergy/AdvReac Type Severity Reaction Status Date / Time quetiapine (From Seroquel) AdvReac Severe Agitated Verified 08/16/24 12:12 Review of Systems 2 Review of Systems: All systems reviewed & are unremarkable except as noted in HPI and below PMFSH Past Medical History Medical History (Updated 08/16/24 @ 13:22 by Bucky Jimenez MD) Joint pain in fingers of right hand Dyspnea on exertion Chest pressure Pain of finger of right hand Arthralgia of multiple joints BMI 34.0-34.9,adult B12 deficiency Muscle strain Screening for diabetes mellitus Depression Hx of colonic polyps colonoscopy 11/09/21 - internal hemorrhoids and polyp removed - repeat 5 years Hypertension Constipation Screening for breast cancer Screening for colon cancer BMI 33.0-33.9,adult Insomnia Elevated BP without diagnosis of hypertension Hypersomnia Snoring Seasonal allergies Encounter to establish care Hyperlipidemia Allergies Surgical History Surgical History H/O tubal ligation Hx of section 1991, 1993, 2001 Family History Family History Sibling Hypertension Mother Cerebrovascular accident Diabetes mellitus Hypertension Heart disease Father Family history of Alzheimer's disease Malignant neoplasm of prostate Social History Social History (Updated 06/15/24 @ 09:53 by Roshni Farah MA) Smoking status: Never smoker Second hand tobacco smoke exposure: No Alcohol intake: former Substance use: never Substance use type: does not use Lack of Transportation: No Lack of Food: Never True Current Housing: I Have Housing Concerned About Future Housing: No Difficulty Paying Gas/Electric Bills: No Difficulty Paying for Meds: No Currently Unemployed: No Education: Trade/Vocational Certificate Difficulty w/ Childcare or Family Care: No Living arrangements: alone Spiritual care concerns: No Exam Narrative: APPEARANCE: Well appearing, no pain, no distress, well-nourished. HEAD: normocephalic, atraumatic. EYES: PERRLA/EOMI, conjunctivae clear. NOSE: Normal no drainage EARS:TMS clear with good light reflex. THROAT: Pharynx clear, no exudate. NECK: Supple. No adenopathy, no masses. RESPIRATORY: Airway patent, respirations nonlabored. Clear to auscultation bilaterally, no rales, rhonchi, wheezing. CARDIOVASCULAR: Regular rate and rhythm without murmurs rubs or gallops. ABDOMINAL: Soft, nontender, nondistended, normal bowel sounds MUSCULOSKELETAL: Moves all extremities. Strength/ROM intact, No edema, No calf tenderness. NEURO: Alert. Cranial nerves II through XII intact. Good gait. Good coordination. No facial asymmetry SKIN: Warm, dry. Normal Color Course Vital Signs Vital signs: Vital Signs Temperature 98.2 F 08/16/24 11:58 Pulse Rate 67 08/16/24 11:58 Respiratory Rate 16 08/16/24 11:58 Blood Pressure 154/78 H 08/16/24 11:58 Pulse Oximetry 100 08/16/24 11:58 Oxygen Delivery Room Air 08/16/24 11:58 Temperature 98.2 F 08/16/24 11:58 Pulse Rate 67 08/16/24 11:58 Respiratory Rate 16 08/16/24 11:58 Blood Pressure 154/78 H 08/16/24 11:58 Pulse Oximetry 100 08/16/24 11:58 Oxygen Delivery Room Air 08/16/24 11:58 Medical Decision Making MDM Narrative Medical decision making narrative: 54-year-old female presents emergency department for evaluation for dental abscess. No abscess was visible in mouth by the was identified by x-ray by her dentist. Patient had been taking amoxicillin with some improvement. Patient will be switched to clindamycin. Patient was treated with an initial dose of IV clindamycin emergency department. Patient was advised to take a probiotic. Pat ient will have outpatient follow-up with the workforce investment act career manager. Differential Diagnosis Differential Diagnosis: Dental abscess, sinusitis, dental caries, sepsis Vital Signs Vital Signs: Vital Signs Temperature 98.2 F 08/16/24 11:58 Pulse Rate 67 08/16/24 11:58 Respiratory Rate 16 08/16/24 11:58 Blood Pressure 154/78 H 08/16/24 11:58 Pulse Oximetry 100 08/16/24 11:58 Oxygen Delivery Room Air 08/16/24 11:58 Temperature 98.2 F 08/16/24 11:58 Pulse Rate 67 08/16/24 11:58 Respiratory Rate 16 08/16/24 11:58 Blood Pressure 154/78 H 08/16/24 11:58 Pulse Oximetry 100 08/16/24 11:58 Oxygen Delivery Room Air 08/16/24 11:58 Discharge Plan Discharge Clinical Impression: Abscess, dental Patient Disposition: Home Condition: Stable Instructions: Antibiotic Form, Dental Abscess (ED) Additional Instructions: Antibiotic as directed until completed. Have close follow-up with your dentist as planned. Patient Language: Occitan Prescriptions: New clindamycin HCl [Cleocin HCl] 300 mg capsule 300 mg PO Q6H 7 Days Qty: 28 0RF fluconazole 150 mg tablet 150 mg PO ONCE Qty: 1 0RF Rx Instructions: as a single dose after you complete your antibiotics No Action Ultra CoQ10 75 mg capsule 200 mg PO DAILY omega-3 fatty acids 500 mg capsule 500 mg PO DAILY soy isofla-blk cohosh-mag bark [Estroven] 1 tab-cap PO DAILY vit C-s.skalnf-bkvgxp-dwoee sd [Tart Feldman] 1 cap PO DAILY cascara sagrada 1 tab-cap PO DAILY rosuvastatin 10 mg tablet 10 mg PO DAILY Qty: 90 3RF cyclobenzaprine 10 mg tablet 5 - 10 mg PO QHS PRN (Reason: muscle spasm) Qty: 30 1RF trazodone 100 mg tablet 100 mg PO QHS Qty: 90 3RF Follow-up/Referrals: Latia Ash NP [Primary Care Provider] -
[2024-08-16] MEDS: CLINDAMYCIN 600 MG/D5W 50 ML 600 MG/50 ML PIGGYBACK 100 MG IVPB (12:53)
--- OUTSIDE RECORDS SUMMARY | 2024-08-16 13:30 | XMS_ITS | Clinical Summary ---
Author Organization [facility] Address [address] [facility] [address] [place] [address] Phone Care Team Providers Care Child Center Assistant Name Role Phone Rene Christy MD Primary Care Provider [phone] Allergies Active Allergy Reactions Criticality Noted Date [...] 05/27 Assessment & Plan (05/27/2016 9:46 AM CHEF FRENCH): Current disease status: Stable BLOOD PRESSURE BP [...] concerns. Assessment & Plan (05/27/2016 9:44 AM CHEF FRENCH): Current disease status: Suboptimal control BMI PLAN [...] visit. Assessment & Plan (05/27/2016 9:44 AM CHEF FRENCH): Current disease status: Stable She was advised [...] and alcohol can trigger or worsen heartburn. [place] Fruits, Tomatoes and Tomato products, Chocolate, Mint [...] on file Legal Sex Female 5:30 PM CHEF FRENCH Gender Identity Not on file Sexual Orientation Not on file Last Filed Vital Signs Vital Sign Reading Time Taken Comments Blood Pressure 114/72 06/02/2023 10:17 AM CHEF FRENCH Pulse 73 08/27/2017 6:27 PM CDT Temperature 37 C (98.6 F) 08/27/2017 6:27 PM CDT Respiratory Rate 16 08/27/2017 6:27 PM CDT Oxygen Saturation 97% 08/27/2017 6:27 PM CDT Inhaled Oxygen Concentration - - Weight 92.5 kg (204 lb) 06/02/2023 10:17 AM CHEF FRENCH Height 167.6 cm (5' 6 ) 06/02/2023 10:17 AM CHEF FRENCH Body Mass Index 32.93 06/02/2023 10:17 AM CHEF FRENCH Plan of Treatment Health Maintenance Due Date [...] BASED SCREEN PAP Routine 06/02/2023 10:35 AM CHEF FRENCH Screening for cervical cancer MAMMO SCRN TO DIAG UNI LEFT Routine 11/14/2016 from Last 3 Months or Most Recently Relevant to Health Maintenance Results * CERV/VAG CYTO AGE BASED SCREEN PAP (06/02/2023 10:35 AM CHEF FRENCH) COMMENT (PAP): [facility] [place] Comment: This order for age-based cervical cancer and STI screening follows ACOG guidelines(PB 168, 140, [id number]). See individual assays for performing site location. CLINICAL INFORMATION [facility] [place] Comment:None given LAST MENSTRUAL PERIOD [facility] [place] Comment:NONE GIVEN PREV PAP: [facility] [place] Comment:NONE GIVEN PREV BX: [facility] [place] Comment:NONE GIVEN SOURCE [facility] [place] Comment:Endocervix ADEQUACY: [facility] [place] Comment:SATISFACTORY FOR BARBY LUATION PAP INTERP [facility] [place] Comment: Cytology Results: Negative for intraepithelial lesion or malignancy. Atrophic pattern; predominantly parabasal cells COMMENT (PAP TEST) [facility] [place] Comment: This Pap test has been evaluated with computer assisted technology. LEAK DETECTION ENGINEER: Artur Ramírez Comment: LUDWIG, CT(ASCP) CT screening location: [place] [address] [place] [address] EXPLANATORY NOTE [employer] [place] Comment: EXPLANATORY NOTE: The Pap is a [...] information. HPV E6/E7 Not Detected Not Detected [facility] [place] Comment: Methodology: Pre Sales Systems Engineer-Mediated Amplification This assay detects E6/E7 viral messenger RNA (mRNA) from 14 high-risk HPV types (16,18,31,33,35,39,45,51,52,56,58,59,66,68). Cervical sources are required for HPV testing. If a vaginal source from a patient who has had a total hysterectomy with removal of cervix was submitted, please contact the testing laboratory for alternative testing options. For additional information, please refer to http://education.[employer]/faq/KDJ973h5 (This link if provided for information/ educational purposes only.) Test Performed at: [facility] [id number] [place] [phone] Kacie BURCH Genital SWAB OF ENDOCERVIX / Unknown 06/02/2023 10:35 AM CHEF FRENCH 06/03/2023 5:05 AM CHEF FRENCH Lolis Waterman COMPUTER SCIENCE INSTRUCTOR PATHOLOGY/CYTOLOGY ORDERAB LES Final Result [facility] [phone] [facility] [id number] [place] [phone] * MAMMO SCRN TO DIAG UNI LEFT (11/14/2016) Anatomical Region Laterality Modality Breast Mammography Kevin Masters MD MAMMO ORDERABLES Final Result from Last 3 Months or Most Recently Relevant to Health Maintenance Insurance BCBS BLUE ACCESS/TRUE BLUE PPO Care Teams Child Center Assistant Relationship Specialty Start Date End Date Rene Christy MD [address] [place] [phone] PCP - General Family Practice 10/05/15
== END 2024-08-16 13:39 | disposition home or self-care (01) ==
PROVIDERS: Emergency Provider Emergency Medicine; PCP Nurse Practitioner Family
DX: K04.7 Periapical abscess without sinus (principal); F32.A Depression, unspecified; I10 Essential (primary) hypertension; E78.5 Hyperlipidemia, unspecified
CPT/HCPCS: 96365; 99284